=== PATIENT | female | born 1965 | race Caucasian/White ===

== ENCOUNTER 2018-04-10 18:19 | Observation (INO) | payer MEDICAID ==
--- NOTE | 2018-04-10 18:32 | EDPHY ---
H & P Stated Complaint: RLQ pain starting last night Time Seen by Provider: 04/10/18 18:31 - Personal History LMP (Females 10-55): Post Menopausal - Medical/Surgical History Hx Asthma: No Hx Chronic Respiratory Disease: No Hx Diabetes: No Hx Cardiac Disease: Yes Hx Renal Disease: No Hx Cirrhosis: No Hx Alcoholism: No Hx HIV/AIDS: No Hx Splenectomy or Spleen Trauma: No Other PMH: HTN - Social History Smoking Status: Never smoked Constitutional: Initial Vital Signs Temperature (C) 36.7 C 04/10/18 18:26 Heart Rate 83 04/10/18 18:26 Respiratory Rate 18 04/10/18 18:26 Blood Pressure 152/103 H 04/10/18 18:26 O2 Sat (%) 94 04/10/18 18:26 O2 Delivery Mode Room Air Allergies/Adverse Reactions: codeine Allergy (Verified 04/10/18 18:26) Home Medications: Medication Instructions Recorded HCTZ (*) 04/10/18 Losartan Potassium 04/10/18 Medical Decision Making - Diagnostics Imaging Results: Imaging Impressions Abdomen CT 04/10/18 18:39 Impression: 1. Constellation of findings as detailed above that would support a clinical diagnosis of acute appendicitis. 2. See above report for additional findings. Results called and discussed with Lon Castro MD on 04/10/2018 at 20:13. Imaging: Discussed imaging studies w/ call manager Radiologist, I viewed and interpreted images myself ED Course/Re-evaluation: CHIEF COMPLAINT: RLQ abdominal pain HISTORY OF PRESENT ILLNESS: The patient is a post-menopausal 53 y/o female complaining of progressively worsening abdominal pain over the last day. She first noticed a "stomachache" last night that was associated loss of appetite. This morning, the pain moved to her right side. She's continued to feel nauseated all day and her pain is aggravated by movement. She denies fever, vomiting, dyspnea, chest pain, urinary symptoms, flank pain, recent illness, or recent trauma. No history of abdominal surgeries. REVIEW OF SYSTEMS: A 10 point review of systems was performed and is negative with the exception of the elements mentioned in the history of present illness. PHYSICAL EXAM: HR, BP, O2 Sat, RR. Temp noted General Appearance: Alert, well hydrated, appropriate, and non-toxic appearing. Head: Atraumatic without scalp tenderness or obvious injury Eyes: Pupils equal, round, reactive to light and accommodation, EOMI, no trauma , no injection. Nose: Atraumatic, no rhinorrhea, clear. Throat: Mucus membranes moist. Neck: Supple Respiratory: No retractions, no distress, no wheezes, and no accessory muscle use. Lungs are clear to auscultation bilaterally. Cardiovascular: Regular rate and rhythm, no murmurs, rubs, or gallops. Good capillary refill all extremities. Gastrointestinal: Abdomen is soft, RLQ McBurney's point tenderness with positive rebound and peritoneal signs, non-distended, no masses. Musculoskeletal: Normal active ROM of all extremities, atraumatic. Neurological: Alert, appropriate, and interactive. The patient has non-focal cranial nerves, motor, sensory, and cerebellar exam. Skin: No rashes, good turgor, no nodules on palpation. Past medical history: Hypertension, postmenopausal x1 year Past surgical history: Denies Family history: Noncontributory Social history: Two children. Lives in [place]. Not employed. DIAGNOSTICS/PROCEDURES/CRITICAL CARE TIME: Abdominal CT: acute appendicitis DIFFERENTIAL DIAGNOSIS: The differential diagnosis for the patient's abdominal pain included but was not limited to ovarian cyst, pelvic inflammatory disease, ovarian torsion, urinary tract infection, ectopic , cholecystitis, and appendicitis. MEDICAL DECISION MAKING: This is a normally healthy 53 y/o female who presents with a 1-day history of worsening abdominal pain now localized to her RLQ and associated with nausea and loss of appetite. She has McBurney's point tenderness with positive rebound and peritoneal signs on exam. Presentation is concerning for acute appendicitis. Plan for IV, ISTAT, labs, UA, abdominal CT, and symptom management. 4mg IV Zofran, 0.5mg IV Dilaudid, and 1L IV NS. CT shows acute appendicitis. IV Ceftriaxone and Flagyl ordered. Consulted with Dr. Billings, surgeon. He will assess and admit patient. Reassessed patient and discussed findings. She agrees with plan for admission. - Data Points Laboratory Results: Laboratory Results 04/10/18 18:35 04/10/18 18:35 04/10/18 04/10/18 04/10/18 19:39 18:49 18:35 WBC RBC Hgb POC Hgb 13.3 gm/dL gm/dL (12.6-16.3) Hct POC Hct 39 % % (38-47) MCV MCH MCHC RDW Plt Count MPV Neut % (Auto) Lymph % (Auto) [place] % (Auto) Eos % (Auto) Baso % (Auto) Nucleat RBC Rel Count Absolute Neuts (auto) Absolute Lymphs (auto) Absolute Monos (auto) Absolute Eos (auto) Absolute Basos (auto) Absolute Nucleated RBC Immature Gran % Immature Gran # POC Sodium 141 mEq/L mEq/L (135-145) Sodium 136 mEq/L mEq/L (135-145) POC Potassium 3.4 mEq/L mEq/L (3.3-5.0) Potassium 3.7 mEq/L mEq/L (3.3-5.0) POC Chloride 105 mEq/L mEq/L (97-110) Chloride 106 mEq/L mEq/L (97-110) Carbon Dioxide 24 mEq/l mEq/l (22-31) Anion Gap 6 mEq/L L mEq/L (8-16) POC BUN 9 mg/dL mg/dL (7-23) BUN 11 mg/dL mg/dL (7-23) Creatinine 0.7 mg/dL mg/dL (0.6-1.0) POC Creatinine 0.7 mg/dL mg/dL (0.6-1.0) Estimated GFR > 60 Glucose 84 mg/dL mg/dL (70-100) POC Glucose 88 mg/dL mg/dL (70-100) Calcium 9.6 mg/dL mg/dL (8.5-10.4) Total Bilirubin 0.6 mg/dL mg/dL (0.1-1.4) Conjugated Bilirubin 0.3 mg/dL mg/dL (0.0-0.5) Unconjugated Bilirubin 0.3 mg/dL mg/dL (0.0-1.1) AST 19 IU/L IU/L (14-46) ALT 33 IU/L IU/L (9-52) Alkaline Phosphatase 109 IU/L IU/L (38-126) Total Protein 7.7 g/dL g/dL (6.3-8.2) Albumin 4.5 g/dL g/dL (3.5-5.0) Lipase 164 IU/L IU/L (23-300) Urine Color PALE YELLOW Urine Appearance CLEAR Urine pH 7.0 (5.0-7.5) Ur Specific [place] 1.005 (1.002-1.030) Urine Protein NEGATIVE (NEGATIVE) Urine Ketones NEGATIVE (NEGATIVE) Urine Blood NEGATIVE (NEGATIVE) Urine Nitrate NEGATIVE (NEGATIVE) Urine Bilirubin NEGATIVE (NEGATIVE) Urine Urobilinogen NEGATIVE EU EU (0.2-1.0) Ur Leukocyte Esterase NEGATIVE (NEGATIVE) Urine Glucose NEGATIVE (NEGATIVE) 04/10/18 18:35 WBC 7.78 10^3/uL 10^3/uL (3.80-9.50) RBC 4.18 10^6/uL 10^6/uL (4.18-5.33) Hgb 12.9 g/dL g/dL (12.6-16.3) POC Hgb Hct 38.2 % % (38.0-47.0) POC Hct MCV 91.4 fL fL (81.5-99.8) MCH 30.9 pg pg (27.9-34.1) MCHC 33.8 g/dL g/dL (32.4-36.7) RDW 12.5 % % (11.5-15.2) Plt Count 269 10^3/uL 10^3/uL (150-400) MPV 11.1 fL fL (8.7-11.7) Neut % (Auto) 54.8 % % (39.3-74.2) Lymph % (Auto) 33.5 % % (15.0-45.0) [place] % (Auto) 9.4 % % (4.5-13.0) Eos % (Auto) 1.7 % % (0.6-7.6) Baso % (Auto) 0.3 % % (0.3-1.7) Nucleat RBC Rel Count 0.0 % % (0.0-0.2) Absolute Neuts (auto) 4.27 10^3/uL 10^3/uL (1.70-6.50) Absolute Lymphs (auto) 2.61 10^3/uL 10^3/uL (1.00-3.00) Absolute Monos (auto) 0.73 10^3/uL 10^3/uL (0.30-0.80) Absolute Eos (auto) 0.13 10^3/uL 10^3/uL (0.03-0.40) Absolute Basos (auto) 0.02 10^3/uL 10^3/uL (0.02-0.10) Absolute Nucleated RBC 0.00 10^3/uL 10^3/uL (0-0.01) Immature Gran % 0.3 % % (0.0-1.1) Immature Gran # 0.02 10^3/uL 10^3/uL (0.00-0.10) POC Sodium Sodium POC Potassium Potassium POC Chloride Chloride Carbon Dioxide Anion Gap POC BUN BUN Creatinine POC Creatinine Estimated GFR Glucose POC Glucose Calcium Total Bilirubin Conjugated Bilirubin Unconjugated Bilirubin AST ALT Alkaline Phosphatase Total Protein Albumin Lipase Urine Color Urine Appearance Urine pH Ur Specific [place] Urine Protein Urine Ketones Urine Blood Urine Nitrate Urine Bilirubin Urine Urobilinogen Ur Leukocyte Esterase Urine Glucose Medications Given: Discontinued Medications Hydromorphone HCl (Dilaudid) 0.5 mg IVP EDNOW ONE Stop: 04/10/18 18:40 Last Admin: 04/10/18 19:21 Dose: 0.5 mg Sodium Chloride (Ns) 1,000 mls @ 0 mls/hr IV EDNOW ONE; Wide Open PRN Reason: Protocol Stop: 04/10/18 18:40 Last Admin: 04/10/18 18:47 Dose: 1,000 mls Sodium Chloride (Ns) 1,000 mls @ 0 mls/hr IV EDNOW ONE; Wide Open PRN Reason: Protocol Stop: 04/10/18 18:40 Last Admin: 04/10/18 19:15 Dose: 1,000 mls Ondansetron HCl (Zofran) 4 mg IVP EDNOW ONE Stop: 04/10/18 18:40 Last Admin: 04/10/18 19:14 Dose: 4 mg Point of Care Test Results: Chemistry 04/10/18 18:49 POC Sodium 141 mEq/L mEq/L (135-145) POC Potassium 3.4 mEq/L mEq/L (3.3-5.0) POC Chloride 105 mEq/L mEq/L (97-110) POC BUN 9 mg/dL mg/dL (7-23) POC Creatinine 0.7 mg/dL mg/dL (0.6-1.0) POC Glucose 88 mg/dL mg/dL (70-100) ISTAT H&H 04/10/18 18:49 POC Hgb 13.3 gm/dL gm/dL (12.6-16.3) POC Hct 39 % % (38-47) Departure - Departure Disposition: [facility] Inpatient Acute Clinical Impression: Acute appendicitis Qualifiers: Acute appendicitis type: with localized peritonitis Qualified Code(s): K35.3 - Acute appendicitis with localized peritonitis Condition: Fair Referrals: RAMA FERNANDEZ [Other] - As per Instructions Report Scribed for: Lon Castro Report Scribed by: Jenni Caputo Date of Report: 04/10/18 Time of Report: 19:01
[2018-04-10] MEDS ORDERED: HYDROmorphONE/DILAUDID 2 MG/ML INJ IVP ONE (18:39)
[2018-04-10] MEDS ORDERED: ONDANSETRON 4 MG/2 ML VIAL IVP ONE (18:39)
[2018-04-10] MEDS ORDERED: NS 1,000 ML IV ONE ×2 (18:39)
[2018-04-10 18:54] LABS: PLATELET COUNT 269 10^3/uL (150-400)
[2018-04-10] MEDS ORDERED: IOPAMIDOL (ISOVUE-300) 100 ML BTL ONE (18:58)
[2018-04-10] MEDS ORDERED: HYDROmorphONE/DILAUDID 1 MG/ML INJ ONE (19:09)
--- NOTE | 2018-04-10 21:28 | PDGENHP ---
History & Physical Chief Complaint: RIGHT LOWER QUADRANT PAIN History of Present Illness: 53-YEAR-OLD FEMALE WITH 24 HR RIGHT LOWER QUADRANT PAIN AND TENDERNESS. NO FEVER. NO EMESIS. NO TRAUMA TO HER ABDOMEN. NO PREVIOUS ABDOMINAL SURGERIES. SHE IS MENOPAUSAL. CT SCAN REVEALS ACUTE APPENDICITIS. WHITE COUNT IS ONLY 7000 Pertinent Past, Social, Family History: PAST MEDICAL HISTORY HYPERTENSION. PAST SURGICAL HISTORY NONE. ALLERGIES PENICILLIN. MEDICATIONS HYDROCHLOROTHIAZIDE, LOSARTAN. FAMILY HISTORY NONCONTRIBUTORY. REVIEW OF SYSTEMS A -10 POINT REVIEW EXCEPT RELATED TO THE HPI Relevant Physical Exam: GENERAL: HEALTHY SLIGHTLY ANXIOUS 53 YEAR FEMALE NO ACUTE DISTRESS, AFEBRILE. HEENT PERRLA, ON NO ADENOPATHY, NO ORAL LESIONS. NECK SUPPLE NONTENDER WITHOUT THYROMEGALY. CHEST CLEAR. COR REGULAR RHYTHM. ABDOMEN SOFT SLIGHTLY DISTENDED, VERY TENDER IN THE RIGHT LOWER QUADRANT WITH REBOUND. NO HERNIAS. EXTREMITIES FULL RANGE OF MOTION FULL PULSES. NEURO EXAM PHYSIOLOGIC AND SYMMETRIC. PSYCH ALERT ORIENTED COOPERATIVE Cardiorespiratory Assessment: IMPRESSION: ACUTE APPENDICITIS. RISKS AND OPTIONS FULLY DISCUSSED. PLAN: BALDEMAR VÁSQUEZ
[2018-04-10] MEDS ORDERED: MIDAZOLAM 2 MG/2 ML VIAL ONE (21:31)
--- NOTE | 2018-04-10 21:32 | POSTOPPROG ---
Post Op Note Date of Operation: 04/10/18 Surgeon: Donny Billings Anesthesiologist: SHERICE Anesthesia: GET(General Endotracheal) Pre-op Diagnosis: ACUTE APPENDICITIS Post-op Diagnosis: SAME Indication: PAIN Procedure: LAP APPY Findings: ACUTE APPENDICITIS Inf/Abcess present in the surg proc area at time of surgery?: Yes Depth: Organ Space EBL: Minimal Complications: NONE Specimen(s): APPENDIX
[2018-04-10] MEDS ORDERED: ONDANSETRON 4 MG/2 ML VIAL IVP PRN ×2 (21:33→22:37)
[2018-04-10] MEDS ORDERED: MIDAZOLAM 2 MG/2 ML VIAL IVP ONE (21:34)
--- NOTE | 2018-04-10 21:35 | PDANEPAE ---
ANE History of Present Illness acute apendicitis ANE Past Medical History - Cardiovascular History Hx Hypertension: Yes - Pulmonary History Hx Oxygen in Use at Home: No Hx Sleep Apnea: No - Endocrine History Hx Diabetes: No ANE Review of Systems Review of Systems: ANE Patient History - Allergies Allergies/Adverse Reactions: codeine Allergy (Verified 04/10/18 18:26) - Home Medications Home Medications: HCTZ (*) 04/10/18 [Last Taken Unknown] Losartan Potassium 04/10/18 [Last Taken Unknown] - NPO status NPO Since - Liquids (Date): 04/10/18 NPO Since - Liquids (Time): 14:00 NPO Since - Solids (Date): 04/10/18 NPO Since - Solids (Time): 10:00 - Smoking Hx Smoking Status: Never smoked ANE Labs/Vital Signs - Labs Result Diagrams: 04/10/18 18:35 04/10/18 18:35 - Vital Signs Blood Pressure: 191/125 Heart Rate: 80 Respiratory Rate: 18 O2 Sat (%): 96 Height: 170.18 cm Weight: 61.235 kg ANE Physical Exam - Airway Neck exam: FROM Mallampati Score: Class 1 Mouth exam: normal dental/mouth exam - Pulmonary Pulmonary: no respiratory distress - Cardiovascular Cardiovascular: regular rate and rhythym - ASA Status ASA Status: II, E ANE Anesthesia Plan Anesthesia Plan: general endotracheal anesthesia
[2018-04-10] MEDS ORDERED: PROPOFOL 200 MG/20 ML VIAL ONE (21:37)
[2018-04-10] MEDS ORDERED: fentaNYL 100 MCG/2 ML INJ ONE ×2 (21:37)
[2018-04-10] MEDS ORDERED: D5W 1/2 NS W/ 20 KCl/L 1,000 ML IV SCH (21:45)
[2018-04-10] MEDS ORDERED: HYDROmorphONE/DILAUDID 1 MG/ML INJ IVP PRN (22:37)
[2018-04-10] MEDS ORDERED: NALOXONE HCL 0.4 MG/ML INJ IVP PRN (22:37)
[2018-04-10] MEDS ORDERED: PROMETHAZINE HCL 25 MG/ML INJ IVP PRN (22:37)
[2018-04-10] MEDS ORDERED: fentaNYL 100 MCG/2 ML INJ IVP PRN (22:37)
[2018-04-10] MEDS ORDERED: HYDROCODONE/APAP 5/325 TAB PO PRN (22:37)
[2018-04-10] MEDS ORDERED: ONDANSETRON 4 MG/2 ML VIAL ONE (22:42)
[2018-04-10] MEDS ORDERED: ROCURONIUM 50 MG/5 ML VIAL ONE (22:42)
[2018-04-10] MEDS ORDERED: DEXAMETHASONE 4 MG/ML VIAL ONE (22:42)
[2018-04-10] MEDS ORDERED: SUGAMMADEX SODIUM 200 MG/2 ML VIAL IVP ONE (22:42)
--- NOTE | 2018-04-10 22:51 | POSTANESTH ---
Post Anesthetic Evaluation Cardiovascular Status: Normal, Stable Respiratory Status: Normal, Stable Level of Consciousness/Mental Status: Can Participate in Eval Pain Control: Adequate, Prn Tx Ordered Nausea/Vomiting Control: Adequate, Prn Tx Ordered Complications Possibly Related to Anesthesia: None Noted
[2018-04-10] MEDS ORDERED: BUPIVACAINE 0.25% 30 ML SDV ONE (23:04)
[2018-04-10] MEDS ORDERED: HEPARIN 1000 UNIT/1 ML MDV ONE (23:04)
[2018-04-10] MEDS ORDERED: ceFAZolin 1 GM/5 ML SYR ONE (23:05)
[2018-04-11] MEDS: HYDROmorphONE/DILAUDID 1 MG/ML INJ IVP PRN ×2 (00:08→03:06)
[2018-04-11] MEDS: KETOROLAC 15 MG/1 ML SDV IVP SCH ×4 (00:08→20:12)
[2018-04-11] MEDS: HYDROCHLOROTHIAZIDE 25 MG TAB PO SCH ×2 (00:38→09:10)
[2018-04-11] MEDS: LOSARTAN POTASSIUM 25 MG TAB PO SCH ×2 (00:39→09:09)
[2018-04-11] MEDS: HYDROCODONE/APAP 5/325 TAB PO PRN ×2 (08:41→20:44)
[2018-04-11] MEDS ORDERED: LORazepam 1 MG TAB PO ONE (11:21)
--- NOTE | 2018-04-11 14:44 | SOAPPROG ---
SOAP Progress Note Assessment/Plan: Assessment: NAUSEA THIS AM WITH EMESIS AND SOME ANXIETY, O2 SAT OK ABD SOFT, + BS, WOUNDS OK Plan:AWAIT RESOLUTION OF NAUSEA 04/11/18 14:43 Objective: Vital Signs Temp Pulse Resp BP Pulse Ox 36.3 C 76 18 115/77 95 04/11/18 11:37 04/11/18 11:37 04/11/18 11:37 04/11/18 11:37 04/11/18 11:37 04/10/18 04/11/18 04/12/18 05:59 05:59 05:59 Intake Total 3820 Output Total 870 Balance 2950 ICD10 Worksheet Patient Problems: Problems Problem Status Onset Acute appendicitis Acute
[2018-04-11 16:24] VITALS: BP 117/82
--- NOTE | 2018-04-14 18:54 | GDS ---
[f rep st] DISCHARGE SUMMARY DISCHARGE DIAGNOSIS: Acute appendicitis. PROCEDURES: Laparoscopic appendectomy. INTRAOPERATIVE FINDINGS: Acutely inflamed appendix. SPECIAL TESTS: CT scan of the abdomen and pelvis suggested acute appendicitis. Please see report fo r details. HOSPITAL COURSE: The patient is a 53-year-old female who presented to the emergency department with complaints of right lower quadrant pain starting the previous night. The CT scan suggested acute mateus endicitis. She underwent a laparoscopic appendectomy with Dr. Billings. The procedure was uncomplicate d, and she tolerated it well. The patient's postoperative course was complicated by some nausea and anxiety. Her vital signs remai nj stable, and her pain was controlled. Eventually, her nausea was improved, and her diet was advan abigail. DISCHARGE INSTRUCTIONS: Patient was discharged to home in stable condition with plans for outpatient followup. /[id number]/MODL
--- NOTE | 2018-05-08 11:33 | GOP ---
[f rep st] OPERATIVE REPORT DATE OF OPERATION: 04/10/2018 SURGEON: Donny Billings MD BUSINESS INTERN: None ANESTHESIA: General endotracheal anesthesia by Dr. Vick. PREOPERATIVE DIAGNOSIS: Acute appendicitis. POSTOPERATIVE DIAGNOSIS: Acute appendicitis. PROCEDURE PERFORMED: FINDINGS: The patient is found to have acute nonperforated Appendicitis. ESTIMATED BLOOD LOSS: Negligible. DESCRIPTION OF PROCEDURE: The patient was taken to the operating room where she received satisfactor y general endotracheal anesthesia by Dr. Vick, was placed in supine position, prepped and draped in the usual sterile fashion. A periumbilical incision was made. A Veress needle was inserted. Pneum operitoneum was established. Trocar was introduced. Laparoscope introduced. Good visualization was obtained. Two other trocars were placed in the lower abdomen under direct vision. The cecum was ro tated medially and freed up from the lateral peritoneal reflection. The appendix was then able to be elevated up. It was quite thickened and inflamed. The mesoappendix was divided with the Harmonic S calpel and the stump was skeletonized and then divided with Endo-DAVID stapler and placed in a specimen bag, extracted over midline port site. Wound was irrigated. Hemostasis was assured. Trocars removed under direct vision. Trocar sites wer e closed with 0 Vicryl for the fascia and 4-0 Monocryl subcuticular stitch for the skin. All layers infiltrated with 0.5% Marcaine. PROCEDURE: Laparoscopic appendectomy. COMPLICATIONS: None. Patient was taken to the recovery room in good condition. /[id number]/MODL
== END 2018-04-11 20:40 | disposition home or self-care (01) ==
LOC: FOB 23:45
PROVIDERS: ADMIT Surgery; ATTEND Surgery
PROC: 0DTJ4ZZ Resection of Appendix, Percutaneous Endoscopic Approach (ICD-10-PCS; principal; 2018-04-10 21:00)
DX: K35.80 Unspecified acute appendicitis (principal)
CPT/HCPCS: 44970; 74177; 96361; 96365; 96375; 96376; 99285; G0378; 82435-PO; 82565-PO; 82947-PO; 84132-PO; 84295-PO; 84520-PO; 85014-PO; J0696; J1100; J1170; J1885; J2250; J2405; J2704; J3010; Q9967